=== PATIENT | male | born 1950 | race Caucasian/White ===

== ENCOUNTER 2024-01-18 09:36 | Emergency (ER) | payer MEDICARE, OTHER ==
[2024-01-18] MEDS: HYDROmorphone 1 MG/ML Syringe IVPUSH ONE ×2 (10:44→14:55)
[2024-01-18] MEDS: valACYclovir 1,000 MG Tab PO ONE (10:44)
[2024-01-18 11:23] LABS: HEMATOCRIT 21.8 % (40.0-52.0); HEMOGLOBIN 7.2 g/dL (14.0-18.0); MEAN CORPUSCULAR HEMOGLOBIN 30.1 pg (26.0-32.0); MEAN CORPUSCULAR VOLUME 91.2 fL (78.0-93.0); PLATELET COUNT,PLT 64 x10^3/uL (130-400); RED BLOOD CELL COUNT 2.39 x10^6/uL (4.5-6.0)
[2024-01-18 11:24] LABS: WHITE BLOOD CELL COUNT,WBC 0.4 x10^3/uL (4.0-10.0)
[2024-01-18] MEDS: Levofloxacin 500 MG Tab PO ONE (11:30)
[2024-01-18 11:33] LABS: CALCIUM 8.1 mg/dL (8.5-10.1); CREATININE 1.2 mg/dL (0.70-1.30); EST CRCL DRUG DOSING (CG) 58.3 mL/min; POTASSIUM,K 4.1 mmol/L (3.5-5.1)
[2024-01-18 11:34] LABS: BAND PERCENT MAN 5 % (0-6); LYMPHOCYTES % ATYPICAL MANUAL 2 % (0); LYMPHOCYTES ABSOLUTE MAN 0.1 x10^3/uL (1.0-4.8); LYMPHOCYTES PERCENT MAN 29 % (25-50); MONOCYTES PERCENT MAN 12 % (2-11); NEUTROPHILS ABSOLUTE MAN 0.2 x10^3/uL (1.8-7.7); SEG NEUTROPHILS PERCENT MAN 52 % (50-80)
[2024-01-18 11:35] LABS: ANISOCYTOSIS 3+ MARKED; OVALOCYTES FEW; PLATELET COUNT ESTIMATE DECREASED; TEARDROP CELLS FEW
[2024-01-18 11:37] LABS: ANION GAP 15.1 mmol/L (5-15)
[2024-01-18] MEDS: Acetaminophen/HYDROcodone 325-10 MG Tab PO ONE (16:37)
[2024-01-18] MEDS: HYDROmorphone 1 MG/ML Syringe IVPUSH PRN (16:55)
== END 2024-01-18 17:18 | disposition short-term general hospital (02) ==
LOC: VM.ED 09:36
DX: S72.044A Nondisplaced fracture of base of neck of right femur, initial encounter for closed fracture (principal); S72.144A Nondisplaced intertrochanteric fracture of right femur, initial encounter for closed fracture; I10 Essential (primary) hypertension; Z88.8 Allergy status to other drugs, medicaments and biological substances; Z91.041 Radiographic dye allergy status; Z79.84 Long term (current) use of oral hypoglycemic drugs; Z79.899 Other long term (current) drug therapy; Z87.891 Personal history of nicotine dependence; W18.39XA Other fall on same level, initial encounter; Y92.009 Unspecified place in unspecified non-institutional (private) residence as the place of occurrence of the external cause; Y93.01 Activity, walking, marching and hiking
CPT/HCPCS: 36415; 72170; 73552; 73700; 80048; 83605; 85025; 96374; 96376; 99285; A9270; J1170